=== PATIENT | male | born 1995 | race Hispanic/Latino ===

== ENCOUNTER 2022-08-01 16:35 | Emergency (ER) | payer SELFPAY ==
[~2022-08-01] VITALS: Ht 165.1 cm; Wt 72.0 kg
[2022-08-01] VITALS (10 sets, daily range): BP systolic 107–122; BP diastolic 75–85
[2022-08-01] MEDS ORDERED: AMOX/K CLAV875 M1 PO (17:57)
== END 2022-08-01 19:41 | disposition home or self-care (01) | DRG 605 ==
LOC: ED 16:35
DX: S81.852A Open bite, left lower leg, initial encounter (principal); S81.851A Open bite, right lower leg, initial encounter; W54.0XXA Bitten by dog, initial encounter; Y92.007 Garden or yard of unspecified non-institutional (private) residence as the place of occurrence of the external cause